=== PATIENT | female | born 1985 | race Caucasian/White ===

== ENCOUNTER 2023-09-22 11:06 | Emergency (ER) | payer OTHER | END 2023-09-22 11:50 | disposition home or self-care (01) | LOC: FB.ED 11:06 | DX: Z02.89 Encounter for other administrative examinations (principal); M54.41 Lumbago with sciatica, right side; F31.9 Bipolar disorder, unspecified; F17.210 Nicotine dependence, cigarettes, uncomplicated; Z88.5 Allergy status to narcotic agent | CPT/HCPCS: 99283 ==